=== PATIENT | male | born 1980 | race Caucasian/White ===

== ENCOUNTER 2016-12-07 21:52 | Emergency (ER) | payer OTHER ==
[~2016-12-07] VITALS: Ht 182.9 cm; Wt 81.6 kg
[~2016-12-07 21:52] MED LIST: BISACODYL5 M1 PO; CYCLOBENZAPRINE10 M1 PO; DOCUSATE SODIU100 M3 PO; MEDROL4 M2 PO; OXYCODONE HCL5 M1 PO; OXYCODONE HCL5 M2 PO; PREDNISONE20 M1 PO
--- NOTE | 2016-12-07 22:28 | ED NECK/BACK PAIN COMPLAINT ---
History of Present Illness General Chief Complaint: General Adult Stated Complaint: ALL OVER BACK PAIN Source: patient Exam Limitations: no limitations Vital Signs & Intake/Output Vital Signs & Intake/Output Vital Signs Date Time Temp Pulse Resp B/P Pulse O2 O2 Flow FiO2 Ox Delivery Rate 12/07 2303 81 20 117/75 98 Room Air 12/07 2257 Room Air 12/07 2201 96.8 108 18 133/90 100 Room Air Allergies Coded Allergies: acetaminophen (Mild, STOMACH PAIN 03/24/16) Reconcile Medications Bisacodyl 5 MG TABLET.DR 5 MG PO DAILY PRN CONSTIPATION Cyclobenzaprine HCl 10 MG TABLET 1 TAB PO 4 TIMES/DAY PRN muscle spasm Docusate Sodium 100 MG CAPSULE 100 MG PO BID PRN CONSTIPATION Oxycodone HCl 5 MG CAPSULE 1 TAB PO Q6P PRN PAIN >7 Oxycodone HCl 5 MG TABLET 1-2 TAB PO TID PRN PAIN ten...[id number] Prednisone 20 MG TABLET 2 TAB PO DAILY disc disease Take 2 tabs daily by mouth, starting tomorrow Triage Note: PT TO ED FOR EXACERBATION OF CHRONIC BACK PAIN, HX OF DISCECTOMY APR 2016. DENIES ANY LOSS OF B/B, REPORTS WORSENING AFTER SHOVELING WEDNESDAY. Triage Nurses Notes Reviewed? yes Onset: Gradual Duration: day(s):, waxing and waning Timing: recent history Quality/Severity: moderate Location: T-spine, lumbar spine Context: was shoveling snow 3 days ago Method of Injury: twisted Loss of Consciousness: no loss of consciousness Modifying Factors: movement, rest Associated Symptoms: muscle spasm HPI: 36 yo gentleman h/o chronic back pain, herniated discs, presents with paraspinal muscle spasm x 3 days which began after shoveling snow. He notes, "I didn't have pain at first, but it all started the next day." He has no radiating pain, no bowel or bladder issues. He notes this is similar to prior episodes of back pain. Past History Travel History Traveled to [place] past 21 day No Medical History Any Pertinent Medical History? 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 No Review of Systems Review of Systems Constitutional: Reports: no symptoms. Eyes: Reports: no symptoms. Ears, Nose, Throat, Mouth: Reports: no symptoms. Respiratory: Reports: no symptoms. Cardiovascular: Reports: no symptoms. Gastrointestinal/Abdominal: Reports: no symptoms. Musculoskeletal: Reports: no symptoms. Skin: Reports: no symptoms. Neurological/Psychological: Reports: no symptoms. All Other Systems: Reviewed and Negative Physical Exam Physical Exam General Appearance: well developed/nourished, mild distress Head: atraumatic Eyes: Bilateral: PERRL, EOMI. Ears, Nose, Throat, Mouth: hearing grossly normal Neck: normal inspection, supple, full range of motion Respiratory: normal breath sounds Cardiovascular: regular rate/rhythm Gastrointestinal: soft, non-tender Back: normal inspection, muscle spasm, no vertebral tenderness Extremities: normal range of motion Neurologic/Psych: awake, alert, oriented x 3, normal mood/affect Skin: intact, normal color, warm/dry Comments: negative straight leg raise test bilaterally strength, light touch, dtr's are symmetrical bilaterally in lower extremities Progress Differential Diagnosis: muscle spasm vs chronic pain vs herniation vs other. Plan of Care: gave toradol, valium, oxycodone... pt encouraged to follow up with pmd for PT referral Departure Departure Disposition: HOME OR SELF CARE Condition: Stable Clinical Impression Primary Impression: Back pain Referrals: UNKNOWN (PCP/Family) Departure Forms: Customer Survey General Discharge Information Prescriptions: Current Visit Scripts Oxycodone HCl 1-2 TAB PO TID PRN PAIN #10 TAB ten...[id number]
[2016-12-07] MEDS ORDERED: OXYCODONE HCL5 M1 PO (22:35)
[2016-12-07 23:03] VITALS: BP 117/75
== END 2016-12-07 23:30 ==
LOC: ERH 21:52
DX: M54.6 Pain in thoracic spine (principal); M54.5 Low back pain
CPT/HCPCS: 96372; J1885; J3360

== ENCOUNTER 2018-05-19 21:28 | Emergency (ER) | payer OTHER ==
[~2018-05-19] VITALS: Ht 188 cm; Wt 79.4 kg
[~2018-05-19 21:28] MED LIST changes: +MOBIC15 M1 PO
--- NOTE | 2018-05-19 23:04 | ED SKIN/ALLERGY COMPLAINT ---
History of Present Illness General Chief Complaint: Skin Rash/ Abcess Stated Complaint: RASH AND SWELLING TO HANDS Source: patient, family, old records Exam Limitations: no limitations Vital Signs & Intake/Output Vital Signs & Intake/Output Vital Signs Date Time Temp Pulse Resp B/P B/P Pulse O2 O2 Flow FiO2 Mean Ox Delivery Rate 05/19 2349 98.2 90 17 145/83 98 Room Air 05/19 2246 Room Air 05/19 2137 98.5 125 16 108/63 98 Allergies Coded Allergies: acetaminophen (Mild, STOMACH PAIN 03/24/16) Reconcile Medications Bisacodyl 5 MG TABLET.DR 5 MG PO DAILY PRN CONSTIPATION Cyclobenzaprine HCl 10 MG TABLET 1 TAB PO TID SPASMS Cyclobenzaprine HCl 10 MG TABLET 1 TAB PO 4 TIMES/DAY PRN muscle spasm Docusate Sodium 100 MG CAPSULE 100 MG PO BID PRN CONSTIPATION Meloxicam (Mobic) 15 MG TABLET 1 TAB PO DAILY pain Oxycodone HCl 5 MG TABLET 1-2 TAB PO Q6P PRN pain Oxycodone HCl 5 MG CAPSULE 1 TAB PO Q6P PRN PAIN >7 Oxycodone HCl 5 MG TABLET 1-2 TAB PO TID PRN PAIN ten...[id number] Prednisone 20 MG TABLET 2 TAB PO DAILY disc disease Take 2 tabs daily by mouth, starting tomorrow Triage Note: PT TO THE ER WITH PAINFUL RED RASH TO BILATERAL HANDS AND WRISTS AND ARMS.. PT STATES THAT THE PAIN IS 9/10. PT STATES THAT HIS BACK IS ALSO IN A LOT OF PAIN, PT STATES THAT HE HAS VERY BAD INDIGESTION.. PT DENIES DIFF BREATHING BUT STATES HE HAS CHEST PAIN/INDIGESTION. DENIES DRUGS AND ALCOHOLE.. Triage Nurses Notes Reviewed? 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 He complains of chronic back pain. The morning prior to admission patient awoke with bilateral hand swelling extending to the forearm with redness over the dorsal surface with superficial abrasions noted. He denies fever chills nausea vomiting diarrhea abdominal pain chest pain cough shortness of breath headache dysuria rash bleeding. Past History Travel History Traveled to [place] past 21 day No Medical History Any Pertinent Medical History? 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 No Review of Systems Review of Systems Constitutional: Reports: no symptoms. EENTM: Reports: no symptoms. Respiratory: Reports: no symptoms. Cardiovascular: Reports: no symptoms. GI: Reports: no symptoms. Genitourinary: Reports: no symptoms. Musculoskeletal: Reports: see HPI, joint pain, joint swelling. Skin: Reports: see HPI, rash. Neurological/Psychological: Reports: no symptoms. Hematologic/Endocrine: Reports: no symptoms. Immunologic/Allergic: Reports: no symptoms. All Other Systems: Reviewed and Negative Physical Exam Physical Exam General Appearance: well developed/nourished, alert, awake, anxious, moderate distress Head: atraumatic, normal appearance Eyes: Bilateral: normal appearance, PERRL, EOMI. Ears, Nose, Throat: normal pharynx, normal ENT inspection, hearing grossly normal Neck: normal inspection, supple, full range of motion, no midline tenderness Respiratory: normal breath sounds, chest non-tender, no respiratory distress, quiet respiration, lungs clear Cardiovascular: regular rate/rhythm, normal peripheral pulses, norml femoral pulses equa Peripheral Pulses: 4+ carotid (R), 4+ carotid (L) Gastrointestinal: normal bowel sounds, soft, non-tender, no organomegaly Back: normal inspection, normal range of motion Extremities: normal range of motion, limited range of motion (Bilateral hands), swelling, tenderness, bilateral carpal edema Neurologic/Psych: awake, alert, oriented x 3, normal mood/affect Reflexes: 2+: bicep (R), bicep (L). Skin: rash Skin Problem Location: upper extremities Skin Problem Character: erythema, swelling, tenderness, thickening, warm Lymphatic: no anterior cervical yolanda Progress Differential Diagnosis: abscess/cellulitis, allergic reaction, contact dermatitis, urticaria Plan of Care: Orders Procedure Date/time Status C-REACTIVE PROTEIN 05/19 2305 Complete BLOOD CULTURE 05/19 2238 Active HIGH SENSITIVITY CRP 05/19 2238 Complete COMPREHENSIVE METABOLIC PANEL 05/19 2238 Complete CBC WITHOUT DIFFERENTIAL 05/19 2238 Complete EKG 05/19 2139 Active Laboratory Tests 05/19/182304: Anion Gap 6, Estimated GFR > 60, BUN/Creatinine Ratio 18.6, Glucose 91, Calcium 9.4, Total Bilirubin 0.7, AST 23, ALT 35, Alkaline Phosphatase 40, C-Reactive Prot, Quant 5.5 H, C-React Prot High Sens > 15.0 H, Total Protein 6.7, Albumin 4.1, Globulin 2.6, Albumin/Globulin Ratio 1.6, CBC w Diff NO MAN DIFF REQ, RBC 4.87, MCV 90.3, MCH 31.3 H, MCHC 34.6, RDW 13.5, MPV 7.4, Gran % 87.5 H, Lymphocytes % 9.2 L, Monocytes % 3.0, Eosinophils % 0.2, Basophils % 0.1, Absolute Granulocytes 10.9 H, Absolute Lymphocytes 1.1 L, Absolute Monocytes 0.4, Absolute Eosinophils 0, Absolute Basophils 0 Microbiology 05/19 2305 BLOOD: Blood Culture - RECD Departure Departure Time of Disposition: 2335 Disposition: HOME OR SELF CARE Condition: Stable Clinical Impression Primary Impression: Cellulitis of hand excluding fingers Referrals: Patient Has No Primary Care Dr (PCP/Family) Departure Forms: Customer Survey General Discharge Information RELEASE- WORK Prescriptions: Current Visit Scripts Cephalexin (Keflex) 1 CAP PO TID #30 CAP Prednisone 1 TAB PO BID #10 TAB Ibuprofen 1 TAB PO Q6P PRN pain #50 TAB with food Tramadol HCl (Ultram) 1-2 TAB PO Q6P PRN severe pain #30 TAB
[2018-05-19 23:14] LABS: ABSOLUTE BASOPHIL COUNT 0 /CUMM (0.0-0.2); ABSOLUTE EOSINOPHIL COUNT 0 /CUMM (0.0-0.7); ABSOLUTE GRANULOCYTE CT 10.9 /CUMM (1.4-6.5); ABSOLUTE LYMPH COUNT 1.1 /CUMM (1.2-3.4); ABSOLUTE MONOCYTE COUNT 0.4 /CUMM (0.10-0.60); BASOPHIL % 0.1 % (0.0-2.0); EOSINOPHIL % 0.2 % (0-5); MEAN CORPUSCULAR HGB 31.3 PG (27.0-31.0); MEAN CORPUSCULAR HGB CONC 34.6 G/DL (33.0-37.0); MEAN CORPUSCULAR VOLUME 90.3 FL (80.0-94.0); MEAN PLATELET VOLUME 7.4 FL (7.4-10.4); PLATELET COUNT 293 /CUMM (130-400); RBC DISTRIBUTION WIDTH 13.5 % (11.5-14.5); RED BLOOD CELL CT 4.87 /CUMM (4.70-6.10); WHITE BLOOD CELL COUNT 12.4 /CUMM (4.8-10.8)
[2018-05-19 23:29] LABS: GRANULOCYTE % 87.5 % (42.2-75.2)
[2018-05-19 23:49] VITALS: BP 145/83
[2018-05-19] MEDS ORDERED: IBUPROFEN600 M1 PO (23:55)
[2018-05-19] MEDS ORDERED: ULTRAM50 M1 PO (23:55)
[2018-05-19] MEDS ORDERED: PREDNISONE20 M1 PO (23:55)
[2018-05-19] MEDS ORDERED: KEFLEX500 M1 PO (23:55)
== END 2018-05-20 00:04 ==
LOC: ERH 21:28
PROVIDERS: Emergency Medicine
DX: L03.113 Cellulitis of right upper limb (principal); L03.114 Cellulitis of left upper limb
CPT/HCPCS: 87040; 93005; 93010; 96374; 96375; J1885; J2930